=== PATIENT | male | born 1950 | race Caucasian/White ===

== ENCOUNTER 2017-03-05 08:15 | Emergency (ER) | payer MEDICARE, BC | END 2017-03-05 09:25 | disposition home or self-care (01) | LOC: CED 08:15 | DX: T78.40XA Allergy, unspecified, initial encounter (principal); Z88.8 Allergy status to other drugs, medicaments and biological substances; Z87.891 Personal history of nicotine dependence; X58.XXXA Exposure to other specified factors, initial encounter | CPT/HCPCS: 96374; 96375; 99284; J1200; J2930 ==